=== PATIENT | female | born 1975 | race Caucasian/White ===

== ENCOUNTER 2021-06-04 08:08 | Outpatient (CLI) | payer OTHER, SELFPAY ==
[2021-06-04 08:37] LABS: Basophils % 0.6 %; Eosinophils # 0.2 10^3/uL (0.0-0.8); Eosinophils % 2.5 %; Hematocrit 46.3 % (37.0-47.0); Hemoglobin 14.6 g/dL (11.5-15.3); Lymphocytes # 1.2 10^3/uL (0.8-4.8); Lymphocytes % 18.2 %; Mean Corpuscular HGB Conc 31.5 g/dL (30.0-36.0); Mean Corpuscular Hemoglobin 27.6 pg (28.0-34.0); Mean Corpuscular Volume 87.5 fl (81-99); Mean Platelet Volume 9.7 fL (7.4-10.4); Monocytes # 0.5 10^3/uL (0.2-0.9); Monocytes % 6.9 %; Neutrophils # 4.66 10^3/uL (1.8-7.7); Neutrophils % 71.3 %; Nucleated Red Blood Cells % 0 %; Platelet Count 298 10^3/cmm (130-400); Red Blood Count 5.29 10^6/uL (4.1-5.3); Red Cell Distribution Width 12.1 % (12.1-15.1); White Blood Count 6.5 10^3/uL (4.0-10.0)
[2021-06-04 09:48] LABS: Estmated Average Glucose 105; Hemoglobin A1C 5.3 % (4.0-6.0)
[2021-06-04 11:01] LABS: 25 Hydroxy Vitamin D 20 ng/mL (30-100); Alanine Aminotransferase 19 U/L (0-33); Albumin Level 4.5 g/dL (3.5-5.2); Alkaline Phosphatase 61 IU/L (35-105); Anion Gap 14.2 (5-19); Aspartate Amino Transferase 14 U/L (0-32); Blood Urea Nitrogen 11 mg/dL (6-20); Calcium 9.4 mg/dL (8.5-10.5); Carbon Dioxide 26 mmol/L (22-29); Chloride 105 mmol/L (98-107); Cholesterol 191 mg/dL (0-200); Globulin 2.9 g/dL (1.3-4.6); Glomerular Filtration Rate 106.7 mL/min (90-130); Glucose 91 mg/dL (65-115); HDL Cholesterol 39 mg/dL (60-100); LDL Cholesterol Calculated 114 mg/dL (50-129); LDL HDL Ratio 2.92 RATIO (0.00-3.22); Osmolality Calculated 291 mOsm/kg (285-295); Potassium 4.2 mmol/L (3.5-5.1); Sodium 141 mmol/L (136-145); Thyroid Stimulating Hormone 4.48 uIU/mL (0.27-4.20); Total Bilirubin 0.3 mg/dL (0.15-1.2); Total Protein 7.4 g/dL (6.6-8.7); Triglycerides 188 mg/dL (0-150)
[2021-06-04 11:35] LABS: Free T4 Free Thyroxine 1.28 ng/dL (0.82-1.77)
[2021-06-05 13:43] LABS: Thyroid Peroxidase Antobodies 409 IU/mL (<9)
== END 2021-06-04 08:09 | disposition home or self-care (01) ==
LOC: LAB 08:14
PROVIDERS: Visit Provider Internal Medicine
DX: Z13.1 Encounter for screening for diabetes mellitus (principal); E06.3 Autoimmune thyroiditis; E55.9 Vitamin D deficiency, unspecified; E66.9 Obesity, unspecified; R53.83 Other fatigue; Z53.20 Procedure and treatment not carried out because of patient's decision for unspecified reasons
CPT/HCPCS: 80053; 80061; 82306; 82533; 83036; 84439; 84443; 85025; 86376

== ENCOUNTER 2021-06-17 07:29 | Outpatient (CLI) | payer OTHER, SELFPAY ==
[2021-06-17 08:32] LABS: Cortisol Random 0.48 ug/dL (2.47-19.5)
== END 2021-06-17 07:30 | disposition home or self-care (01) ==
PROVIDERS: Visit Provider Internal Medicine
DX: E06.3 Autoimmune thyroiditis (principal)
CPT/HCPCS: 36415; 82533

== ENCOUNTER → 2021-08-11 11:39 | Outpatient (BNVA) | payer OTHER, SELFPAY | PROVIDERS: Visit Provider Internal Medicine | DX: E06.3 Autoimmune thyroiditis (principal); E03.8 Other specified hypothyroidism; E55.9 Vitamin D deficiency, unspecified | CPT/HCPCS: 84439; 84443 ==

== ENCOUNTER 2021-10-13 07:05 | Outpatient (CLI) | payer OTHER, SELFPAY ==
[2021-10-13 07:53] LABS: Free T4 Free Thyroxine 1.41 ng/dL (0.82-1.77); Thyroid Stimulating Hormone 4.64 uIU/mL (0.27-4.20)
== END 2021-10-13 07:06 | disposition home or self-care (01) ==
LOC: LAB 07:06
PROVIDERS: Visit Provider Internal Medicine
DX: E03.8 Other specified hypothyroidism (principal); E06.3 Autoimmune thyroiditis
CPT/HCPCS: 84439; 84443

== ENCOUNTER 2021-12-11 06:40 | Outpatient (CLI) | payer OTHER, SELFPAY ==
[2021-12-11 07:59] LABS: Thyroid Stimulating Hormone 5.24 uIU/mL (0.27-4.20)
[2021-12-11 11:13] LABS: Free T4 Free Thyroxine 1.34 ng/dL (0.82-1.77)
== END 2021-12-11 06:41 | disposition home or self-care (01) ==
LOC: LAB 06:43
PROVIDERS: Visit Provider Internal Medicine
DX: E06.3 Autoimmune thyroiditis (principal)
CPT/HCPCS: 36415; 84439; 84443

== ENCOUNTER 2022-02-20 13:52 | Emergency (ER) | payer OTHER, SELFPAY ==
[2022-02-20 14:00] VITALS: BP 136/87; PULSE 89; RESP 16; TEMP 36.7; O2SAT 97; BMI 41.9
--- NOTE | 2022-02-20 14:39 | ED_ITS ---
HPI - General Adult General: Chief complaint: Dizziness Stated complaint: Feeling sick, throwing up Time Seen by Provider: 02/20/22 14:07 History of Present Illness: Ms King is a 47-year-old lady with history of thyroid disorder presenting to the emergency department due to visual di sturbance. She reports being at her baseline health and while at work at sudden onset with position change of splotchy vision. She describes mild associated unbalance feeling and subtle dizziness though no other specific focal neurologic symptoms. Reports 1 prior episode of similar which resolved after about 20 to 30 minutes however this has not resolved. She reports symptoms are similar whe ther she closes 1 eye or the other. Does not endorse floaters or curtain of vision disturbance. Intensity symptoms moderate. Course has persisted. No other specific changes in health, exacerbating, or alleviating factors identified. Onset (ago): hour(s) Severity: moderate Quality: other Relieving factors: none Exacerbating factors: none Review of Systems General: Reports: 10 or more systems reviewed and unremarkable except in HPI and below PFSH ED PFSH: Medical History Constipation Weight gain Surgical History H/O abdominoplasty Hx of breast reduction, elective Hx of hysterectomy Family History Father COPD (chronic obstructive pulmonary disease) A-fib Mother Rheumatoid arthritis Social History Smoking and tobacco status: former smoker Quit status (tobacco): has quit using tobacco Second hand smoke exposure: No Smoking risk assessment/counseling performed?: No Alcohol intake: current Alcohol intake frequency: holidays/special occasions only Alcohol type: beer Desire information about alcohol rehabilitation?: No Counseling given: No Desire information about substance/drug rehabilitation?: No Counseling given: No Adopted: No Caregiver/support person: No Lives independently: Yes Household members: spouse and children Housing: House Marital status: Number of children: 3 Highest education level completed: Some College, No Degree service: No Current occupational status: employed History of recent travel: No Physical Exam Const: COMMON NORMALS: patient oriented x3 and alert GENERAL APPEARANCE: cooperative and well developed HENMT: COMMON NORMALS: normocephalic, atraumatic, external ears normal, EAC's normal and TM's normal bilaterally HEAD & SCALP: normocephalic and atraumatic EXTERNAL EAR: Yes external ears normal EXTERNAL AUDITORY CANAL: EAC's normal TYMPANIC MEMBRANE: TM's normal bilaterally THROAT: posterior oropharynx normal Eye: COMMON NORMALS: Equal, round and reactive pupils present, EOMs intact bilaterally, conjunctivae normal and normal visual nuñez by confrontation CONJUNCTIVA: Yes conjunctivae normal SCLERA: sclerae normal PUPIL: Yes Equal, round and reactive pupils present OTHER: 20/30 OS/OD/OU Normal IOP OU Normal fluorescein exam Neck/C-Spine: COMMON NORMALS: supple GENERAL: Yes trachea midline Resp: COMMON NORMALS: clear to auscultation bilaterally EFFORT & INSPE CTION: Yes able to speak in complete sentences AUSCULTATION: clear to auscultation bilaterally Cardio: COMMON NORMALS: regular rate and regular rhythm RATE: regular rate RHYTHM: regular rhythm GI: COMMON NORMALS: Soft to palpation PALPATION: Yes Soft to palpation and No Tenderness to palpation present (GI) Extremity: GENERAL: Yes normal exam except as noted and No edema Neuro: COMMON NORMALS: patient oriented x3, CN's II-XII intact bilaterally, moves all extremities, no focal motor deficits, no sensory deficits noted and gait normal SENSORIUM/ORIENTATION: Yes alert and No Orientation impaired Psych: COMMON NORMALS: mental status grossly normal and Normal thought process present THOUGHT PROCESS: Normal thought process present Course Vital Signs: Vital signs: Vital Signs Temperature 98.0 F 02/20/22 14:00 Pulse Rate 94 02/20/22 17:40 Respiratory Rate 16 02/20/22 14:00 Blood Pressure 128/90 02/20/22 17:40 Pulse Oximetry 97 02/20/22 17:40 Oxygen Delivery Me thod 02/20/22 14:00 [facility] - General Adult Medical Decision Making 47-year-old lady presenting with visual disturbance and lightheaded feeling that was sudden in onset. No focal neurologic findings and exam is somewhat indeterminant between central and peripheral causes. Hematologic panel with minimal leukocytosis, normal hemoglobin. Mild dehydration on metabolic panel. CT head imaging with no intracranial acute pathology. Vascular imaging was similarly unremarkable. On reassessment patient improved. Given description of symptoms and physical exam findings most likely etiology is a peripheral cause of symptoms and patient does not require further advanced imaging at this time. The results of ED evaluation were discussed with the patient including prescriptions and/or symptomatic cares (if applicable) including appropriate and responsible use, followup plan, and return precautions. The patient verbalized understanding and felt safe for discharge. Medical Records I reviewed the patient's medical records. Lab Data I reviewed the patient's lab results. : 02/20/22 15:15 02/20/22 15:15 Radiology Impressions Head/Neck CTA 02/20/22 14:54 IMPRESSION: 1. No large vessel stenosis or occlusion. 2. No acute intracranial abnormality. IMPRESSION: No stenosis or occlusion. REFERENCES: NASCET CRITERIA. The degree of stenosis in the cervical segment of the internal carotid artery is based on NASCET criteria. Normal is no stenosis. Mild is less than 50% stenosis. Moderate is 50-69% stenosis. Severe is 70% to 99% stenosis. Total occlusion is no detectable patent lumen. Laboratory Results WBC 11.6 10^3/uL (4.0-10.0) H 02/20/22 15:15 RBC 4.87 10^6/uL (4.1-5.3) 02/20/22 15:15 Hgb 13.1 g/dL (11.5-15.3) 02/20/22 15:15 Hct 41.6 % (37.0-47.0) 02/20/22 15:15 MCV 85.4 fl (81-99) 02/20/22 15:15 MCH 26.9 pg (28.0-34.0) L 02/20/22 15:15 MCHC 31.5 g/dL (30.0-36.0) 02/20/22 15:15 RDW 12.5 % (12.1-15.1) 02/20/22 15:15 Plt Count 282 10^3/cmm (130-400) 02/20/22 15:15 MPV 9.6 fL (7.4-10.4) 02/20/22 15:15 Neut % (Auto) 79.0 % 02/20/22 15:15 Lymph % (Auto) 13.1 % 02/20/22 15:15 [place] % (Auto) 6.1 % 02/20/22 15:15 Eos % (Auto) 1.0 % 02/20/22 15:15 Baso % (Auto) 0.3 % 02/20/22 15:15 Neut # (Auto) 9.12 10^3/uL (1.8-7.7) H 02/20/22 15:15 Lymph # (Auto) 1.5 10^3/uL (0.8-4.8) 02/20/22 15:15 [place] # (Auto) 0.7 10^3/uL (0.2-0.9) 02/20/22 15:15 Eos # (Auto) 0.1 10^3/uL (0.0-0.8) 02/20/22 15:15 Baso # (Auto) 0.0 10^3/uL (0.0-0.1) 02/20/22 15:15 Nucleated RBC % (auto) 0 % 02/20/22 15:15 Nucleated RBCs # 0.0 /100WBC 02/20/22 15:15 Sodium 133 mmol/L (136-145) L 02/20/22 15:15 Potassium 3.6 mmol/L (3.5-5.1) 02/20/22 15:15 Chloride 97 mmol/L (98-107) L 02/20/22 15:15 Carbon Dioxide 25 mmol/L (22-29) 02/20/22 15:15 Anion Gap 14.6 (5-19) 02/20/22 15:15 BUN 13 mg/dL (6-20) 02/20/22 15:15 Creatinine 0.7 mg/dL (0.5-0.9) 02/20/22 15:15 GFR Calculation 88.9 mL/min (90-130) L 02/20/22 15:15 Glucose 135 mg/dL (65-115) H 02/20/22 15:15 Calculated Osmolality 278 mOsm/kg (285-295) L 02/20/22 15:15 Calcium 8.9 mg/dL (8.5-10.5) 02/20/22 15:15 Total Bilirubin 0.2 mg/dL (0.15-1.2) 02/20/22 15:15 AST 15 U/L (0-32) 02/20/22 15:15 ALT 29 U/L (0-33) 02/20/22 15:15 Alkaline Phosphatase 65 U/L (35-105) 02/20/22 15:15 Total Protein 6.8 g/dL (6.6-8.7) 02/20/22 15:15 Albumin 4.0 g/dL (3.5-5.2) 02/20/22 15:15 Globulin 2.8 g/dL (1.3-4.6) 02/20/22 15:15 TSH 3.36 uIU/mL (0.27-4.20) 02/20/22 15:15 Discharge Plan Discharge Patient Disposition: Home Clinical Impression: Visual disturbances, Dizziness Condition: Stable Prescriptions: New meclizine 25 mg tablet 25 mg PO TID PRN (Reason: dizziness) Qty: 14 0RF No Action levothyroxine [Tirosint] 50 mcg capsule 50 mcg PO DAILY Qty: 90 3RF Discharge Orders: Discharge ED (Routine); Ordered 02/20/22 Ordered By: Matias Jackson Discharge Diet: Usual diet Discharge Activity: Increase activity as tolerated Patient Instructions: Blurred Vision (ED), Dizziness (ED) Activity Restrictions/Additional Instructions: Thank you for visiting the emergency department. You were seen and evaluated for visual disturbance and dizziness. The exact cause of your symptoms is unclear though most likely related to a peripheral cause such as causes of vertigo. We are pleased that you had improvement in the emergency department. Please follow-up with your primary care provider. Return to the emergency department for worsening symptoms or anything else that you are concerned about and feel needs emergency department evaluation. Coding Level of Care Code ED Senior Functional Analyst for Nedra Esquivel
--- NOTE | 2022-02-20 14:54 | CTR_ITS ---
PROCEDURE INFORMATION: Exam: CTA Head With Contrast, Arteriography Exam date and time: 02/20/2022 3:07 PM Age: 47 years old Clinical indication: Visual disturbance; Additional info: Visual disturbance, dizziness TECHNIQUE: Imaging protocol: Computed tomographic angiography of the head with contrast. Exam focused on the arteries. 3D rendering (Not supervised by radiologist): MIP and/or 3D reconstructed images were created by the technologist. Radiation optimization: All CT scans at this facility use at least one of these dose optimization techniques: automated exposure control; mA and/or kV adjustment per patient size (includes targeted exams where dose is matched to clinical indication); or iterative reconstruction. Contrast material: OMNIPAQUE 350; Contrast volume: 100 ml; Contrast route: INTRAVENOUS (IV); COMPARISON: No relevant prior studies available. RADIATION DOSE METRICS: Total DLP (mGy-cm): 1012.1 FINDINGS: ANTERIOR CIRCULATION: Right internal carotid artery: Intracranial segment is patent with no significant stenosis. No aneurysm. Right middle cerebral artery: No occlusion or significant stenosis. No aneurysm. Right anterior cerebral artery: No occlusion or significant stenosis. No aneurysm. Left internal carotid artery: Intracranial segment is patent with no significant stenosis. No aneurysm. Left middle cerebral artery: No occlusion or significant stenosis. No aneurysm. Left anterior cerebral artery: No occlusion or significant stenosis. No aneurysm. POSTERIOR CIRCULATION: Right vertebral artery: No occlusion or significant stenosis. No aneurysm. Left vertebral artery: No occlusion or significant stenosis. No aneurysm. Basilar artery: No occlusion or significant stenosis. No aneurysm. Right posterior cerebral artery: Persistent circulation, with right posterior cerebral circulation through the patent right posterior communicating artery. No occlusion or significant stenosis. No aneurysm. Left posterior cerebral artery: Persistent circulation, with left posterior cerebral circulation through the patent left posterior communicating artery. No occlusion or significant stenosis. No aneurysm. Brain: No hemorrhage, mass effect or midline shift. No acute, major vascular distribution infarction identified. There is foci of decreased attenuation in the periventricular and subcortical white matter, likely representing chronic small vessel ischemic changes. Mild cerebral volume loss is present. No intra-axial or extra-axial fluid collection seen. Cerebral ventricles: No ventriculomegaly. Mastoid air cells: Visualized mastoid air cells are well aerated. Paranasal sinuses: Visualized sinuses are unremarkable. No fluid levels. Bones/joints: Unremarkable. No acute fracture. Soft tissues: Unremarkable. PROCEDURE INFORMATION: Exam: CTA Neck With Contrast Exam date and time: 02/20/2022 3:07 PM Age: 47 years old Clinical indication: Visual disturbance; Additional info: Visual disturbance, dizziness TECHNIQUE: Imaging protocol: Computed tomographic angiography of the neck with contrast. 3D rendering (Not supervised by radiologist): MIP and/or 3D reconstructed images were created by the technologist. Radiation optimization: All CT scans at this facility use at least one of these dose optimization techniques: automated exposure control; mA and/or kV adjustment per patient size (includes targeted exams where dose is matched to clinical indication); or iterative reconstruction. Contrast material: OMNIPAQUE 350; Contrast volume: 100 ml; Contrast route: INTRAVENOUS (IV); COMPARISON: No relevant prior studies available. RADIATION DOSE METRICS: Total DLP (mGy-cm): 1012.1 FINDINGS: Right common carotid artery: No stenosis. No dissection or occlusion. Right internal carotid artery: No stenosis of the extracranial segment. No dissection or occlusion. Right external carotid artery: No occlusion or stenosis of the origin. Left common carotid artery: No stenosis. No dissection or occlusion. Left internal carotid artery: No stenosis of the extracranial segment. No dissection or occlusion. Left external carotid artery: No occlusion or stenosis of the origin. Right vertebral artery: No stenosis. No dissection or occlusion. Left vertebral artery: Dominant left vertebral artery. No stenosis. No dissection or occlusion. Soft tissues: Normal. No significant soft tissue swelling. Bones/joints: No acute fracture. CT/CT angio headneck* [id number] IMPRESSION: 1. No large vessel stenosis or occlusion. 2. No acute intracranial abnormality. IMPRESSION: No stenosis or occlusion. REFERENCES: NASCET CRITERIA. The degree of stenosis in the cervical segment of the internal carotid artery is based on NASCET criteria. Normal is no stenosis. Mild is less than 50% stenosis. Moderate is 50-69% stenosis. Severe is 70% to 99% stenosis. Total occlusion is no detectable patent lumen.
[2022-02-20] MEDS: iohexol 350 mg/mL 500 mL Btl (per mL) IV (15:06)
[2022-02-20 15:10] VITALS: BP 154/88; PULSE 91; O2SAT 98
[2022-02-20] MEDS: meclizine 25 mg tablet PO (15:32)
[2022-02-20] MEDS: sodium chloride 0.9% 1,000 ML 999 ML IV (15:32)
[2022-02-20 15:39] LABS: Basophils % 0.3 %; Eosinophils # 0.1 10^3/uL (0.0-0.8); Hematocrit 41.6 % (37.0-47.0); Hemoglobin 13.1 g/dL (11.5-15.3); Lymphocytes # 1.5 10^3/uL (0.8-4.8); Lymphocytes % 13.1 %; Mean Corpuscular HGB Conc 31.5 g/dL (30.0-36.0); Mean Corpuscular Hemoglobin 26.9 pg (28.0-34.0); Mean Corpuscular Volume 85.4 fl (81-99); Mean Platelet Volume 9.6 fL (7.4-10.4); Monocytes # 0.7 10^3/uL (0.2-0.9); Monocytes % 6.1 %; Neutrophils # 9.12 10^3/uL (1.8-7.7); Nucleated Red Blood Cells % 0 %; Platelet Count 282 10^3/cmm (130-400); Red Blood Count 4.87 10^6/uL (4.1-5.3); Red Cell Distribution Width 12.5 % (12.1-15.1); White Blood Count 11.6 10^3/uL (4.0-10.0)
[2022-02-20 16:08] LABS: Alanine Aminotransferase 29 U/L (0-33); Alkaline Phosphatase 65 U/L (35-105); Anion Gap 14.6 (5-19); Aspartate Amino Transferase 15 U/L (0-32); Blood Urea Nitrogen 13 mg/dL (6-20); Calcium 8.9 mg/dL (8.5-10.5); Carbon Dioxide 25 mmol/L (22-29); Chloride 97 mmol/L (98-107); Globulin 2.8 g/dL (1.3-4.6); Glomerular Filtration Rate 88.9 mL/min (90-130); Glucose 135 mg/dL (65-115); Osmolality Calculated 278 mOsm/kg (285-295); Potassium 3.6 mmol/L (3.5-5.1); Sodium 133 mmol/L (136-145); Thyroid Stimulating Hormone 3.36 uIU/mL (0.27-4.20); Total Bilirubin 0.2 mg/dL (0.15-1.2); Total Protein 6.8 g/dL (6.6-8.7)
[2022-02-20] MEDS: diphenhydrAMINE 50 mg/mL SDV 1mL 12.5 MG IVP (16:24)
[2022-02-20] MEDS: metoclopramide 5 mg/mL SDV 2 mL 10 MG IVP (16:24)
--- NOTE | 2022-02-20 16:29 | PC.NURSE ---
visual acuity R eye 20/30 L eye 20/30
[2022-02-20 17:40] VITALS: BP 128/90; PULSE 94; O2SAT 97
== END 2022-02-20 17:42 | disposition home or self-care (01) ==
PROVIDERS: Emergency Provider Emergency Medicine
DX: R42 Dizziness and giddiness (principal); H53.9 Unspecified visual disturbance; Z87.891 Personal history of nicotine dependence
CPT/HCPCS: 70496; 70498; 80053; 84443; 85025; 96365; 96375; 99285; J1200; J2765; J3475; J7030; J8597; Q9967

== ENCOUNTER 2022-03-31 07:13 | Outpatient (CLI) | payer OTHER, SELFPAY ==
[2022-03-31 08:23] LABS: Free T4 Free Thyroxine 1.45 ng/dL (0.82-1.77); Thyroid Stimulating Hormone 4.67 uIU/mL (0.27-4.20)
== END 2022-03-31 07:14 | disposition home or self-care (01) ==
LOC: LAB 07:16
PROVIDERS: Visit Provider Internal Medicine
DX: E03.8 Other specified hypothyroidism (principal); E06.3 Autoimmune thyroiditis
CPT/HCPCS: 36415; 84439; 84443

== ENCOUNTER 2022-06-10 07:01 | Outpatient (CLI) | payer OTHER, SELFPAY ==
[2022-06-10 08:20] LABS: Free T4 Free Thyroxine 1.55 ng/dL (0.82-1.77); Thyroid Stimulating Hormone 3.95 uIU/mL (0.27-4.20)
[2022-06-10 09:09] LABS: 25 Hydroxy Vitamin D 18 ng/mL (30-100)
== END 2022-06-10 07:02 | disposition home or self-care (01) ==
LOC: LAB 07:06
PROVIDERS: Visit Provider Internal Medicine
DX: E03.8 Other specified hypothyroidism (principal); E55.9 Vitamin D deficiency, unspecified
CPT/HCPCS: 82306; 84439; 84443

== ENCOUNTER 2022-08-12 07:10 | Outpatient (CLI) | payer OTHER, SELFPAY ==
[2022-08-12 08:13] LABS: Free T4 Free Thyroxine 1.65 ng/dL (0.82-1.77); Thyroid Stimulating Hormone 2.62 uIU/mL (0.27-4.20)
[2022-08-13 11:50] LABS: T3 Total 135 ng/dL (76-181)
[2022-08-16 10:49] LABS: Vit D 1,25 (Oh)2, Total 62 pg/mL (18-72); Vit D2 1,25 (Oh)2 <8 pg/mL; Vit D3 1,25 (Oh)2 62 pg/mL
== END 2022-08-12 07:11 | disposition home or self-care (01) ==
LOC: LAB 07:14
PROVIDERS: Visit Provider Internal Medicine
DX: E03.8 Other specified hypothyroidism (principal); E06.3 Autoimmune thyroiditis
CPT/HCPCS: 36415; 82652; 84439; 84443; 84480

== ENCOUNTER 2022-12-11 07:01 | Outpatient (CLI) | payer OTHER, SELFPAY ==
[2022-12-11 08:26] LABS: Thyroid Stimulating Hormone 1.36 uIU/mL (0.27-4.20)
[2022-12-11 09:22] LABS: 25 Hydroxy Vitamin D 40 ng/mL (30-100)
== END 2022-12-11 07:02 | disposition home or self-care (01) ==
PROVIDERS: PCP Internal Medicine; Visit Provider Internal Medicine
DX: E06.3 Autoimmune thyroiditis (principal)
CPT/HCPCS: 36415; 82306; 84439; 84443

== ENCOUNTER → 2023-04-23 08:36 | Outpatient (BNVA) | payer OTHER, SELFPAY | PROVIDERS: PCP Internal Medicine; Visit Provider Podiatrist Foot & Ankle Surgery | DX: M72.2 Plantar fascial fibromatosis | CPT/HCPCS: 73630 ==

== ENCOUNTER 2023-04-28 07:04 | Outpatient (CLI) | payer OTHER, SELFPAY ==
[2023-04-28 07:56] LABS: Free T4 Free Thyroxine 1.69 ng/dL (0.82-1.77); Thyroid Stimulating Hormone 5.45 uIU/mL (0.27-4.20)
[2023-04-28 08:35] LABS: 25 Hydroxy Vitamin D 27 ng/mL (30-100)
== END 2023-04-28 07:05 | disposition home or self-care (01) ==
LOC: LAB 07:05
PROVIDERS: Visit Provider Internal Medicine
DX: E03.8 Other specified hypothyroidism (principal); E55.9 Vitamin D deficiency, unspecified; E06.3 Autoimmune thyroiditis; E66.9 Obesity, unspecified; R53.83 Other fatigue; R63.5 Abnormal weight gain
CPT/HCPCS: 36415; 82306; 84439; 84443

== ENCOUNTER 2023-07-16 09:47 | Outpatient (CLI) | payer OTHER, SELFPAY ==
[2023-07-16 10:54] LABS: 25 Hydroxy Vitamin D 34 ng/mL (30-100); Thyroid Stimulating Hormone 3.63 uIU/mL (0.27-4.20)
[2023-07-16 11:28] LABS: Free T4 Free Thyroxine 1.59 ng/dL (0.82-1.77)
== END 2023-07-16 09:48 | disposition home or self-care (01) ==
LOC: LAB 09:49
PROVIDERS: PCP Internal Medicine; Visit Provider Internal Medicine
DX: E55.9 Vitamin D deficiency, unspecified (principal); E03.8 Other specified hypothyroidism; E06.3 Autoimmune thyroiditis
CPT/HCPCS: 36415; 82306; 84439; 84443

== ENCOUNTER 2023-09-21 07:04 | Outpatient (CLI) | payer OTHER, SELFPAY ==
[2023-09-21 08:02] LABS: Free T4 Free Thyroxine 1.52 ng/dL (0.82-1.77); Thyroid Stimulating Hormone 4.79 uIU/mL (0.27-4.20)
[2023-09-21 08:40] LABS: 25 Hydroxy Vitamin D 47 ng/mL (30-100)
== END 2023-09-21 07:05 | disposition home or self-care (01) ==
PROVIDERS: PCP Internal Medicine; Visit Provider Internal Medicine
DX: E03.8 Other specified hypothyroidism (principal); E06.3 Autoimmune thyroiditis
CPT/HCPCS: 36415; 82306; 84439; 84443

== ENCOUNTER → 2024-02-16 08:00 | Outpatient (BNVA) | payer OTHER, SELFPAY | PROVIDERS: PCP Internal Medicine; Visit Provider Nurse Practitioner Family | DX: Z01.818 Encounter for other preprocedural examination (principal) | CPT/HCPCS: 80053; 80061; 82306; 83036; 85025 ==

== ENCOUNTER → 2024-05-24 08:32 | Outpatient (BNVA) | payer OTHER, SELFPAY | PROVIDERS: PCP Nurse Practitioner Family; Visit Provider Nurse Practitioner Family | DX: Z98.890 Other specified postprocedural states (principal); Z53.20 Procedure and treatment not carried out because of patient's decision for unspecified reasons; Z98.84 Bariatric surgery status; I10 Essential (primary) hypertension; R53.83 Other fatigue | CPT/HCPCS: 80053; 80061; 82607; 82746; 83036; 83540; 85025 ==

== ENCOUNTER → 2024-09-25 08:29 | Outpatient (BNVA) | payer OTHER, SELFPAY | PROVIDERS: PCP Nurse Practitioner Family; Visit Provider Nurse Practitioner Family | DX: I10 Essential (primary) hypertension (principal); R53.83 Other fatigue; Z53.20 Procedure and treatment not carried out because of patient's decision for unspecified reasons; E55.9 Vitamin D deficiency, unspecified; R68.89 Other general symptoms and signs | CPT/HCPCS: 80053; 80061; 82607; 82746; 83036; 83540; 85025 ==